=== PATIENT | male | born 1970 | race Caucasian/White ===

== ENCOUNTER 2019-05-30 10:43 | Observation (INO) ==
[2019-05-30] MEDS ORDERED: dilTIAZem HCl 5 MG/ML 5 ML VIAL IV ONE (10:57)
[2019-05-30] MEDS ORDERED: SODIUM CHLORIDE 0.9% 1000ML 1,000 ML IV ONE (10:58)
[2019-05-30] MEDS ORDERED: dilTIAZem HCl 5 MG/ML 5 ML VIAL IV STA ×2 (10:58→12:06)
[2019-05-30 11:10] LABS: Basophils # (auto) 0.05 K/uL (0-0.2); Basophils % (auto) 0.7 %; Eosinophils # (auto) 0.64 K/uL (0-0.5); Eosinophils % (auto) 8.5 %; Hematocrit (blood only) 47.5 % (42-52); Hemoglobin 16.2 g/dL (14.0-18.0); Immature Granulocytes # (auto) 0.02 K/uL (0.00-0.02); Immature Granulocytes % (auto) 0.3 %; Lymphocytes # (auto) 2.68 K/uL (1.2-3.4); Lymphocytes % (auto) 35.7 %; Mean Corpuscular Hemoglobin 30.6 pg (25-34); Mean Corpuscular Hgb Conc 34.1 g/dL (32-36); Mean Corpuscular Volume 89.6 fL (80-100); Mean Platelet Volume 10.4 fL (7.4-10.4); Monocytes # (auto) 0.84 K/uL (0.11-0.59); Monocytes % (auto) 11.2 %; Neutrophils # (auto) 3.28 K/uL (1.4-6.5); Neutrophils % (auto) 43.6 %; Platelet Count 261 K/uL (130-400); RDW Coefficient of Variation 12.7 % (11.5-14.5); White Blood Count 7.51 K/uL (4.8-10.8)
[2019-05-30 11:19] LABS: Partial Thromboplastin Time 27.3 Seconds (21.0-31.0); Prothrombin Time 10.3 Seconds (9.0-12.0)
[2019-05-30 11:27] LABS: Alanine Aminotransferase 34 U/L (12-78); Albumin Level 3.9 gm/dl (3.4-5.0); Aspartate Aminotransferase 19 U/L (15-37); BUN Creatinine Ratio 17.1 (10-20); Blood Urea Nitrogen 18 mg/dl (7-18); Calcium 8.8 mg/dl (8.5-10.1); Carbon Dioxide 29 mmol/L (21-32); Chloride 106 mmol/L (98-107); Est GFR (African American) 95.5; Est GFR (Non-African American) 82.4; Glucose 97 mg/dl (70-99); Lipase 136 U/L (73-393); Potassium 4.3 mmol/L (3.5-5.1); Sodium 141 mmol/L (136-145)
[2019-05-30 11:40] LABS: Alkaline Phosphatase 71 U/L (45-117); Bilirubin,Total 0.7 mg/dl (0.2-1); Globulin 3.9 gm/dl (2.5-4.0); Total Protein 7.8 gm/dl (6.4-8.2); Troponin I < 0.015 ng/ml (0-0.045)
--- NOTE | 2019-05-30 11:43 | XRay Report ---
XR chest 1V portable CLINICAL HISTORY: 49 years-old Male presenting with Chest Pain. TECHNIQUE: Portable upright AP view of the chest was obtained. COMPARISON: None. FINDINGS: Cardiac silhouette borderline enlarged. No focal opacity. No large effusion or pneumothorax. Osseous structures normal. Upper abdomen normal. IMPRESSION: 1. Borderline cardiomegaly. No other convincing evidence of acute cardiopulmonary disease. Electronically signed by: August Huitron M.D. 05/30/2019 11:42 AM
[2019-05-30 11:59] LABS: Lyme Ab IgG w/WB Rflx Negative (Negative); Lyme Ab IgM w/WB Rflx Negative (Negative)
[2019-05-30] MEDS ORDERED: APIXABAN 5 MG TABLET PO ONE ×2 (12:19→23:00)
--- NOTE | 2019-05-30 14:03 | History & Physical Report ---
Date of Service May 30, 2019 Assessment & Plan (1) Atrial fibrillation with RVR: New onset paroxysmal atrial fibrillation with rapid ventricular response. Electrolytes and TSH normal. Does not use excessive caffeine, decongestants, or other stimulants. Received intravenous diltiazem in ED with slowing of ventricular rate. HELEN(2)DS(2)-VASc score = 0. Check echo. Cardiology consulted for further evaluation and management. (2) DVT prophylaxis: Not indicated due to low risk for VTE. (3) Discharge planning issues: Anticipated discharge to home. Family Medicine follow-up with Dr. Conde. History of Present Illness Chief Complaint: palpitations Primary Care Provider: Zachariah Conde MD 49-year-old male followed by Dr. Conde for Family Medicine. He enjoys excellent health. This morning, upon awakening, he noted palpitations, mild dyspnea on exertion, mild weakness and lightheadedness. No chest pain. Symptoms persisted, so he came to the ED for evaluation. Found to be in atrial fibrillation with rapid ventricular response. Received intravenous diltiazem with slowing of ventricular rate. Does not use excessive caffeine, decongestants, nicotine, or other stimulants. 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) Basal cell carcinoma (Chronic) No known problems Family History Father Mycosis fungoides Grandfather (Maternal) Melanoma Other Cancer Social History Preferred Language: Pashto Communication Ability: Effective Veterinary Parasitologist Required: No Beliefs That Will Affect Care: None Current Living Situation: Spouse and Family Other Information That Helps Us Care for You: No Feels Safe at Home: Yes Safety Concerns: Feels Safe At This Time Smoking Status: Light tobacco smoker Tobacco Type: cigars ; Cigarettes Per Day: a year ago ; Do You Dip or Chew Tobacco: No ; Second Hand Exposure: No ; Tobacco Cessation Education Requested by Patient: No Hx Alcohol Use: Yes Hx Substance Use: No Review of Systems Constitutional: no fever and no weight loss Eyes: no diplopia and no worsening vision Ear, Nose, Mouth, Throat: no nasal congestion, no sinus pain/pressure and no sore throat Respiratory: no cough and no dyspnea Cardiovascular: no chest pain, no palpitations and no edema Gastrointestinal: no nausea, no vomiting, no constipation, no diarrhea/loose stools, no blood in stools and no melena Musculoskeletal: + joint pain (knee pain) Integumentary: no rash and no new lesions followed by Derm for BCC Neurologic: + headache(s) (mild headache) Endocrine: no polydipsia and no polyuria Hematologic / Lymphatic: no easy bleeding, no easy bruising and no lymphadenopathy Physical Exam Constitutional: WD/WN, vitals as above no acute distress Eyes: PERRL, conjunctivae normal, anicteric sclerae ENMT: external ear and nose normal, oropharynx normal Neck: trachea midline, no thyromegaly Respiratory: normal respiratory effort, lungs clear to auscultation Cardiovascular: Rate/Rhythm: + irregularly irregular Heart Sounds: no gallop, no murmur and no cardiac rub Vessels: no JVD Extremities: normal capillary refill; no calf tenderness and no edema Gastrointestinal (Abdomen): normal bowel sounds, soft, nontender, no hepatosplenomegaly Musculoskeletal: Head/Neck/Chest: neck supple Extremities: strength 5/5 throughout; no cyanosis and no clubbing Skin: no rashes, warm and dry Neurologic: PERRL, EOMI no facial palsy no dysarthria or aphasia Psychiatric: Orientation: alert and oriented x 3 Affect: euthymic affect Lymphatic: no cervical lymphadenopathy Results & Data Vital Signs (Past 12 Hours) Vital Signs Temp Pulse Resp BP Pulse Ox 05/30/19 13:31 101 H 22 143/95 H 05/30/19 13:30 107 H 20 05/30/19 13:29 113 H 24 05/30/19 13:00 100 H 17 05/30/19 12:30 100 H 20 126/87 05/30/19 12:10 108 H 25 H 116/89 05/30/19 12:00 107 H 18 05/30/19 11:30 106 H 20 123/90 05/30/19 11:29 98 H 24 05/30/19 10:53 37 C 125 H 22 158/116 H 98 Laboratory Results Laboratory Results - last 24 hr 05/30/19 05/30/19 05/30/19 11:00 11:00 11:00 WBC 7.51 RBC 5.30 Hgb 16.2 Hct 47.5 MCV 89.6 MCH 30.6 MCHC 34.1 RDW Std Deviation 41.0 RDW Coeff of Lucie 12.7 Plt Count 261 MPV 10.4 Immature Gran % (Auto) 0.3 Neut % (Auto) 43.6 Lymph % (Auto) 35.7 Stokes % (Auto) 11.2 Eos % (Auto) 8.5 Baso % (Auto) 0.7 Immature Gran # (Auto) 0.02 Neut # (Auto) 3.28 Lymph # (Auto) 2.68 Stokes # (Auto) 0.84 H Eos # (Auto) 0.64 H Baso # (Auto) 0.05 PT 10.3 INR 1.0 APTT 27.3 PTT Ratio 1.0 Sodium 141 Potassium 4.3 Chloride 106 Carbon Dioxide 29 Anion Gap 6.0 BUN 18 Creatinine 1.05 Est Cr Clr Drug Dosing Not Reportable Est GFR ( Amer) 95.5 Est GFR (Non-Af Amer) 82.4 BUN/Creatinine Ratio 17.1 Glucose 97 Calcium 8.8 Magnesium 2.0 Total Bilirubin 0.7 AST 19 ALT 34 Alkaline Phosphatase 71 Troponin I < 0.015 Total Protein 7.8 Albumin 3.9 Globulin 3.9 Albumin/Globulin Ratio 1.0 Lipase 136 TSH 2.150 Lyme Disease IgG Ab Lyme Disease IgM Ab 05/30/19 11:00 WBC RBC Hgb Hct MCV MCH MCHC RDW Std Deviation RDW Coeff of Lucie Plt Count MPV Immature Gran % (Auto) Neut % (Auto) Lymph % (Auto) Stokes % (Auto) Eos % (Auto) Baso % (Auto) Immature Gran # (Auto) Neut # (Auto) Lymph # (Auto) Stokes # (Auto) Eos # (Auto) Baso # (Auto) PT INR APTT PTT Ratio Sodium Potassium Chloride Carbon Dioxide Anion Gap BUN Creatinine Est Cr Clr Drug Dosing Est GFR ( Amer) Est GFR (Non-Af Amer) BUN/Creatinine Ratio Glucose Calcium Magnesium Total Bilirubin AST ALT Alkaline Phosphatase Troponin I Total Protein Albumin Globulin Albumin/Globulin Ratio Lipase TSH Lyme Disease IgG Ab Negative Lyme Disease IgM Ab Negative Diagnostic Findings PORTABLE CHEST X-RAY FINDINGS: Cardiac silhouette borderline enlarged. No focal opacity. No large effusion or pneumothorax. Osseous structures normal. Upper abdomen normal. IMPRESSION: 1. Borderline cardiomegaly. No other convincing evidence of acute cardiopulmonary disease. Electronically signed by: August Huitron M.D. 05/30/2019 11:42 AM ECG Additional Comments: EKG performed at 1053 reviewed and demonstrated atrial fibrillation with a ventricular rate of 130/minute, poor R wave progression. Code Status & VTE Plan VTE Prophylaxis Plan VTE Prophylaxis will be ordered: No
[2019-05-30] MEDS ORDERED: ACETAMINOPHEN 325 MG TAB PO PRN (14:15)
--- NOTE | 2019-05-30 14:35 | Emergency Department Note ---
Entered by Valeria Samuel acting as a scribe for Fran Cortes DO History of Present Illness General Chief complaint: Chest Pain Stated complaint: CHEST PRESSURE - SHORT OF BREATH Source: patient Limitations: no limitations History of Present Illness Provider complaint: Palpitations Onset (ago): hour(s) Location: chest Pain Consistency: + constant Quality: + constant Associated symptoms: + other (Positive: palpitations, "strange feeling" in chest. Negative: falls, leg swelling); no nausea/vomiting The patient is a 49 year old male with no known past medical history who presents to the ED with complaints of constant palpitations that started this morning. The patient reports he went downstairs and noticed fluttering in his chest. He notes he was doing things that made him tired which usually do not affect him. The patient reports he developed shortness of breath. He additionally notes he didnt feel right [facility] and decided to come to the ER. He reports he is not in pain but just a strange feeling in my chest. The patient denies recent falls or trauma, nausea, vomiting, or leg swelling. Home Medications Home Medications Medication Instructions Recorded Confirmed Type No Known Home Medications 05/30/19 05/30/19 History Allergies Allergy/AdvReac Type Severity Reaction Status Date / Time No Known Allergies Allergy Mild Unverified 05/30/19 11:29 Past Med/Surg History Medical History No known problems Family History Other Cancer Social History Preferred Language: Kazakh Communication Ability: Effective Director Diversity Required: No Beliefs That Will Affect Care: None Current Living Situation: Spouse and Family Other Information That Helps Us Care for You: No Feels Safe at Home: Yes Safety Concerns: Feels Safe At This Time Smoking Status: Light tobacco smoker Tobacco Type: cigars ; Cigarettes Per Day: a year ago ; Do You Dip or Chew Tobacco: No ; Second Hand Exposure: No ; Tobacco Cessation Education Requested by Patient: No Hx Alcohol Use: Yes Hx Substance Use: No Review of Systems See HPI for pertinent positives & negatives. and A total of 10 systems reviewed and were otherwise negative Physical Exam Vital Signs Vital Signs - 24 hr 05/30/19 10:53 05/30/19 11:29 05/30/19 11:30 Temperature 37 C Temperature Source Oral Sepsis Recent Fever Within 48 Hours No Sepsis Action Taken by Nursing No Action Required Pulse Rate 125 H 98 H 106 H Pulse Rhythm Regular Pulse Strength Normal Respiratory Rate 22 24 20 Respiratory Effort / Characteristics Non-Labored Spontaneous Respiratory Depth Normal Respiratory Pattern Regular Blood Pressure 158/116 H 123/90 Blood Pressure Mean 130 101 Pulse Oximetry 98 Oxygen Delivery Method Room Air 05/30/19 11:46 05/30/19 12:00 05/30/19 12:10 Temperature Temperature Source Sepsis Recent Fever Within 48 Hours Sepsis Action Taken by Nursing Pulse Rate 107 H 108 H Pulse Rhythm Pulse Strength Respiratory Rate 18 25 H Respiratory Effort / Characteristics Respiratory Depth Respiratory Pattern Blood Pressure 116/89 Blood Pressure Mean 98 Pulse Oximetry Oxygen Delivery Method Room Air 05/30/19 12:30 05/30/19 13:00 Temperature Temperature Source Sepsis Recent Fever Within 48 Hours Sepsis Action Taken by Nursing Pulse Rate 100 H 100 H Pulse Rhythm Pulse Strength Respiratory Rate 20 17 Respiratory Effort / Characteristics Respiratory Depth Respiratory Pattern Blood Pressure 126/87 Blood Pressure Mean 100 Pulse Oximetry Oxygen Delivery Method GENERAL: Patient is awake, alert, and in no acute distress.Patient is resting comfortably and showing no signs of anxiety EYES: The conjunctivae are clear. The pupils are round and reactive. EARS, NOSE, MOUTH AND THROAT: The nose is without any evidence of any deformity. Mucous membranes are moist.Tongue is midline NECK: The neck is nontender and supple. RESPIRATORY: Normal respiratory effort is noted. There is no evidence of wheezing rhonchi or rales to auscultation. CARDIOVASCULAR: Tachycardic rate and irregular rhythm noted. No definite murmur noted. GASTROINTESTINAL: The abdomen is soft. Bowel sounds are present in all quadrants. Abdomen is nontender. MUSCULOSKELETAL/EXTREMITIES: There is no evidence of gross deformity. Full range of motion is noted in the hips and shoulders. SKIN: There is no obvious evidence of any rash. There are no petechiae, pallor or cyanosis noted. NEUROLOGIC: Patient is awake alert and oriented x3. Course 1052: The patient was evaluated in room A10. A complete history and physical exam was performed. 1200:Upon reevaluation, the patient is resting comfortably. I discussed laboratory and radiographic results with him. The patient verbalized agreement of the treatment plan. The patient will be evaluated for further management and care. 1208: I discussed the patient's case with Dr. Lay, Internal Medicine. He recommends eliquis and admission. 1238: I discussed the patient's case with Ora Mendoza PA-C. The patient will be evaluated for further management by Ora Rizvi Hospitalist. Consultations Consultation #1: I discussed the patient's case with Dr. Lay, Internal Medicine. He recommends eliquis and admission. Time: 12:08 Consultation #2: I discussed the patient's case with Ora Mendoza PA-C. The patient will be evaluated for further management by Ora Rizvi Hospitalmay[facility]. Time: 12:38 Administered Medications Discontinued Medications Apixaban (Eliquis) 5 mg PO ONE ONE Stop: 05/30/19 12:20 Last Admin: 05/30/19 12:27 Dose: 5 mg Documented by: [id number] Diltiazem HCl (Cardizem) Confirm Administered Dose 25 mg IV .STK-MED ONE Stop: 05/30/19 10:58 Last Admin: 05/30/19 11:10 Dose: Not Given Documented by: [id number] Diltiazem HCl (Cardizem) 10 mg IV NOW STA Stop: 05/30/19 10:59 Last Admin: 05/30/19 11:01 Dose: 10 mg Documented by: [id number] Cosigned by: [id number] Diltiazem HCl (Cardizem) 10 mg IV NOW STA Stop: 05/30/19 12:07 Last Admin: 05/30/19 12:08 Dose: 10 mg Documented by: [id number] Cosigned by: [id number] Sodium Chloride (Nss 1000ml) 1,000 mls @ 999 mls/hr IV .Q1H1M ONE Stop: 05/30/19 11:58 Last Infusion: 05/30/19 12:09 Dose: 0 mls/hr Documented by: [id number] Admin: 05/30/19 11:01 Dose: 999 mls/hr Documented by: [id number] Medical Decision Making Differential Diagnosis Differential diagnosis: Etiologies such as cardiac ischemia, aortic dissection, pulmonary embolism, pneumonia, pneumothorax, musculoskeletal, infections, pericarditis, myocarditis, esophageal rupture, gastrointestinal, as well as others were entertained. Medical Records Attestation: I reviewed the patient's medical records. Home Medications Current Medication List: was personally reviewed by me (No known home medications ) Laboratory Data Attestation: I reviewed the patient's lab results. Result diagrams: 05/30/19 11:00 05/30/19 11:00 Lab Results 05/30/19 05/30/19 05/30/19 Range/Units 11:00 11:00 11:00 WBC 7.51 (4.8-10.8) K/uL RBC 5.30 (4.7-6.1) M/uL Hgb 16.2 (14.0-18.0) g/dL Hct 47.5 (42-52) % MCV 89.6 (80-100) fL MCH 30.6 (25-34) pg MCHC 34.1 (32-36) g/dL RDW Std Deviation 41.0 (36.4-46.3) fL RDW Coeff of Lucie 12.7 (11.5-14.5) % Plt Count 261 (130-400) K/uL MPV 10.4 (7.4-10.4) fL Immature Gran % (Auto) 0.3 % Neut % (Auto) 43.6 % Lymph % (Auto) 35.7 % Cobb % (Auto) 11.2 % Eos % (Auto) 8.5 % Baso % (Auto) 0.7 % Immature Gran # (Auto) 0.02 (0.00-0.02) K/uL Neut # (Auto) 3.28 (1.4-6.5) K/uL Lymph # (Auto) 2.68 (1.2-3.4) K/uL Cobb # (Auto) 0.84 H (0.11-0.59) K/uL Eos # (Auto) 0.64 H (0-0.5) K/uL Baso # (Auto) 0.05 (0-0.2) K/uL PT 10.3 (9.0-12.0) Seconds INR 1.0 (0.9-1.1) APTT 27.3 (21.0-31.0) Seconds PTT Ratio 1.0 Sodium 141 (136-145) mmol/L Potassium 4.3 (3.5-5.1) mmol/L Chloride 106 (98-107) mmol/L Carbon Dioxide 29 (21-32) mmol/L Anion Gap 6.0 (3-11) BUN 18 (7-18) mg/dl Creatinine 1.05 (0.6-1.4) mg/dl Est Cr Clr Drug Dosing Not Reportable Est GFR ( Amer) 95.5 Est GFR (Non-Af Amer) 82.4 BUN/Creatinine Ratio 17.1 (10-20) Glucose 97 (70-99) mg/dl Calcium 8.8 (8.5-10.1) mg/dl Magnesium 2.0 (1.8-2.4) mg/dl Total Bilirubin 0.7 (0.2-1) mg/dl AST 19 (15-37) U/L ALT 34 (12-78) U/L Alkaline Phosphatase 71 (45-117) U/L Troponin I < 0.015 (0-0.045) ng/ml Total Protein 7.8 (6.4-8.2) gm/dl Albumin 3.9 (3.4-5.0) gm/dl Globulin 3.9 (2.5-4.0) gm/dl Albumin/Globulin Ratio 1.0 (0.9-2) Lipase 136 (73-393) U/L TSH 2.150 (0.300-4.500) uIu/ml Lyme Disease IgG Ab (Negative) Lyme Disease IgM Ab (Negative) 05/30/19 Range/Units 11:00 WBC (4.8-10.8) K/uL RBC (4.7-6.1) M/uL Hgb (14.0-18.0) g/dL Hct (42-52) % MCV (80-100) fL MCH (25-34) pg MCHC (32-36) g/dL RDW Std Deviation (36.4-46.3) fL RDW Coeff of Lucie (11.5-14.5) % Plt Count (130-400) K/uL MPV (7.4-10.4) fL Immature Gran % (Auto) % Neut % (Auto) % Lymph % (Auto) % Cobb % (Auto) % Eos % (Auto) % Baso % (Auto) % Immature Gran # (Auto) (0.00-0.02) K/uL Neut # (Auto) (1.4-6.5) K/uL Lymph # (Auto) (1.2-3.4) K/uL Cobb # (Auto) (0.11-0.59) K/uL Eos # (Auto) (0-0.5) K/uL Baso # (Auto) (0-0.2) K/uL PT (9.0-12.0) Seconds INR (0.9-1.1) APTT (21.0-31.0) Seconds PTT Ratio Sodium (136-145) mmol/L Potassium (3.5-5.1) mmol/L Chloride (98-107) mmol/L Carbon Dioxide (21-32) mmol/L Anion Gap (3-11) BUN (7-18) mg/dl Creatinine (0.6-1.4) mg/dl Est Cr Clr Drug Dosing Est GFR ( Amer) Est GFR (Non-Af Amer) BUN/Creatinine Ratio (10-20) Glucose (70-99) mg/dl Calcium (8.5-10.1) mg/dl Magnesium (1.8-2.4) mg/dl Total Bilirubin (0.2-1) mg/dl AST (15-37) U/L ALT (12-78) U/L Alkaline Phosphatase (45-117) U/L Troponin I (0-0.045) ng/ml Total Protein (6.4-8.2) gm/dl Albumin (3.4-5.0) gm/dl Globulin (2.5-4.0) gm/dl Albumin/Globulin Ratio (0.9-2) Lipase (73-393) U/L TSH (0.300-4.500) uIu/ml Lyme Disease IgG Ab Negative (Negative) Lyme Disease IgM Ab Negative (Negative) Imaging Data Radiologist's Impression: Radiology results as stated below per my review and the radiologist's interpretation: XR chest 1V portable CLINICAL HISTORY: 49 years-old Male presenting with Chest Pain. TECHNIQUE: Portable upright AP view of the chest was obtained. COMPARISON: None. FINDINGS: Cardiac silhouette borderline enlarged. No focal opacity. No large effusion or pneumothorax. Osseous structures normal. Upper abdomen normal. IMPRESSION: 1. Borderline cardiomegaly. No other convincing evidence of acute cardiopulmonary disease. Electronically signed by: August Huitron M.D. 05/30/2019 11:42 AM ECG Data Attestation: I personally reviewed and interpreted this ECG as follows: Indication: chest pain Rate (beats per minute): 129 Rhythm: atrial fibrillation Findings: no PVC, no ST depression and no ST elevation Comparison ECG Date: no prior available Blood Pressure Blood Pressure Findings: Elevated blood pressure Blood Pressure Disposition: elevated BP felt to be situational MDM Narrative The patient is a 49-year-old male who presented to the emergency department for an evaluation of palpitations. The patient started noticing dyspnea on exertion this morning. When he took his pulse he noticed it was fast and irregular. The patient was found to be in rapid atrial fibrillation. He was treated with IV fluids as well as IV Cardizem. He was also started on Eliquis. Patient was reevaluated multiple times. His symptoms significantly improved when his rate improved. He continued to be in atrial fibrillation. I discussed his case with the on-call [facility] rn procedure. I also discussed his case with the on-call [facility] hospitalist group. They have agreed to evaluate the patient in the emergency department for further management disposition. I discussed the patient's laboratory and radiographic studies with him. I also discussed the significance of this irregular heart rate with him and the need for rate control as well as anticoagulation at this time. Impression & Plan Atrial fibrillation with RVR, Chest pain, DIMAS (dyspnea on exertion), Palpitations Critical Care Time Critical Care Time: Yes Total Critical Care Time: 40 I have personally spent 40 minutes of critical care time in the direct management of this patient. This includes bedside care, interpretation of diagnostic studies, and testing, discussion with consultants, patient, and family members, and other required patient management activities. This 40 minutes is in excess of all separately billable procedures. Discharge Plan Visit Data *Final* Discharge Date/Time: 05/30/19 13:46 Chief Complaint: Chest Pain Stated Complaint: CHEST PRESSURE - SHORT OF BREATH ED Provider: Fran Cortes Discharge Problem: Atrial fibrillation with RVR, Chest pain, DIMAS (dyspnea on exertion), Palpitations Patient Disposition: Admitted As Inpatient Discharge Instructions Interventions: ED Discharge Assessment Last Done: 05/30/19 13:46 Discharge Problem: Chest pain Qualifiers: Chest pain type: unspecified Qualified Code(s): R07.9 - Chest pain, unspecified The scribe's documentation has been prepared under my direction and personally reviewed by me in its entirety. I confirm that the note above accurately reflects all work, treatment, procedures, and medical decision making performed by me.
[2019-05-30] MEDS ORDERED: dilTIAZem HCl 125 MG in DEXTROSE 5% 100 ML IV SCH (15:00)
--- NOTE | 2019-05-30 15:10 | Cardiology Consultation ---
Date of Consultation May 30, 2019 Assessment & Plan (1) Atrial fibrillation with RVR: Echocardiogram is currently in process. Rate control-start metoprolol tartrate 25 mg 4 times daily, diltiazem infusion 5 mg/h Stroke risk: Felicia has been initiated, first dose administered today 1227, will administer dose #2 at 11 PM, and then get him onto a regular 9 AM 9 PM dose starting tomorrow morning. History of Present Illness Attending Physician: Reji Leonard MD History of Present Illness Santos Jay is a 49 year old male seen in cardiology consultation per the request of Dr. Reji Leonard of the [facility] hospitalist group for the evaluation of palpitations due to newly diagnosed atrial fibrillation with rapid ventricular response. The patient states that yesterday he was in his normal state of health. He had a campfire last night, and had one bottle of beer. He went to bed feeling well. When he woke up at 745 this morning he felt a fluttering sensation in his chest. He went about his morning and while doing some laundry he felt exertional shortness of breath and transient chest pressure. He went to faith with his family, but his symptoms persisted and therefore he sought treatment in the emergency room. EKG performed on arrival on 05/30/2019 at 10:53 AM revealed atrial fibrillation with rapid ventricular response of 129 bpm without significant repolarization changes. He received 2 doses of IV diltiazem with improvement in his heart rates and symptoms. I discussed the case by telephone with Dr. Cortes of the emergency room, and I recommended hospital observation for further work-up and treatment. The patient has since been transferred to room to await. He is feeling comfortable. Atrial fibrillation in the range of 100 to 120 bpm is present at baseline. Vital signs are stable and he is in no distress. He has no past cardiac history. He is not on any medications. Past medical history-no chronic illnesses Family history-notable for his father having a "bundle branch block "and pacemaker Social history-patient is , he has a father of 3 and he works as a fish assistant manager. He is a non-smoker, he drinks alcohol rarely. Allergies Allergy/AdvReac Type Severity Reaction Status Date / Time No Known Allergies Allergy Mild Unverified 05/30/19 11:29 Home Medications Home Medications Medication Instructions Recorded Confirmed Type No Known Home Medications 05/30/19 05/30/19 History Patient History Medical History No known problems Family History Other Cancer Social History Preferred Language: [place] Communication Ability: Effective County Attorney Required: No Beliefs That Will Affect Care: None Current Living Situation: Spouse and Family Other Information That Helps Us Care for You: No Feels Safe at Home: Yes Safety Concerns: Feels Safe At This Time Smoking Status: Light tobacco smoker Tobacco Type: cigars ; Cigarettes Per Day: a year ago ; Do You Dip or Chew Tobacco: No ; Second Hand Exposure: No ; Tobacco Cessation Education Requested by Patient: No Hx Alcohol Use: Yes Hx Substance Use: No Physical Exam Physical Exam: Temp Pulse Resp BP Pulse Ox 37 C 101 H 22 143/95 H 98 05/30/19 10:53 05/30/19 13:31 05/30/19 13:31 05/30/19 13:31 05/30/19 10:53 Constitutional: WD/WN, vitals as above Respiratory: normal respiratory effort, lungs clear to auscultation Cardiovascular: Rate/Rhythm: + tachycardic and + irregularly irregular Vessels: no JVD Extremities: no edema Gastrointestinal (Abdomen): normal bowel sounds, soft, nontender, no hepatosplenomegaly Skin: no rashes, warm and dry Neurologic: PERRL, EOMI, accommodation nl, no face palsy, no dysarthria Results & Data Vital Signs (Past 12 Hours) Vital Signs Temp Pulse Resp BP Pulse Ox 05/30/19 13:31 101 H 22 143/95 H 05/30/19 13:30 107 H 20 05/30/19 13:29 113 H 24 05/30/19 13:00 100 H 17 05/30/19 12:30 100 H 20 126/87 05/30/19 12:10 108 H 25 H 116/89 05/30/19 12:00 107 H 18 05/30/19 11:30 106 H 20 123/90 05/30/19 11:29 98 H 24 05/30/19 10:53 37 C 125 H 22 158/116 H 98 Laboratory Results Cardiac Enzymes 05/30/19 Range/Units 11:00 AST 19 (15-37) U/L Troponin I < 0.015 (0-0.045) ng/ml Coagulation 05/30/19 Range/Units 11:00 PT 10.3 (9.0-12.0) Seconds APTT 27.3 (21.0-31.0) Seconds CBC 05/30/19 Range/Units 11:00 WBC 7.51 (4.8-10.8) K/uL RBC 5.30 (4.7-6.1) M/uL Hgb 16.2 (14.0-18.0) g/dL Hct 47.5 (42-52) % Plt Count 261 (130-400) K/uL Neut # (Auto) 3.28 (1.4-6.5) K/uL Lymph # (Auto) 2.68 (1.2-3.4) K/uL Todd # (Auto) 0.84 H (0.11-0.59) K/uL Eos # (Auto) 0.64 H (0-0.5) K/uL Baso # (Auto) 0.05 (0-0.2) K/uL Comprehensive Metabolic Panel 05/30/19 Range/Units 11:00 Sodium 141 (136-145) mmol/L Potassium 4.3 (3.5-5.1) mmol/L Chloride 106 (98-107) mmol/L Carbon Dioxide 29 (21-32) mmol/L BUN 18 (7-18) mg/dl Creatinine 1.05 (0.6-1.4) mg/dl Glucose 97 (70-99) mg/dl Calcium 8.8 (8.5-10.1) mg/dl AST 19 (15-37) U/L ALT 34 (12-78) U/L Alkaline Phosphatase 71 (45-117) U/L Total Protein 7.8 (6.4-8.2) gm/dl Albumin 3.9 (3.4-5.0) gm/dl Intake and Output 05/30/19 05/30/19 05/30/19 06:59 14:59 22:59 Intake Total 1000 / 1000 Balance 1000 / 1000 Intake: IV 1000 / 1000 Nss 1000ML 1,000 ml @ 999 mls/ 1000 / 1000 hr IV .Q1H1M [facility] Rx#:[id number] Other: Weight 116 kg Patient Weight 05/31/19 06:59 Weight 116 kg
[2019-05-30] MEDS: METOPROLOL TARTRATE 25 MG TAB PO SCH ×2 (17:03→21:59)
--- NOTE | 2019-05-31 07:23 | Cardiology Progress Note ---
Date of Service May 31, 2019 Assessment & Plan (1) Atrial fibrillation with RVR: Pt converted to SR early this am. Review of telemetry reveals the patient had a 3-second conversion pause this morning at 4:07 AM while on a diltiazem infusion. This was followed by several sinus beats and then he reverted back to atrial fibrillation. At 4:53 AM the patient converted from atrial fibrillation to sinus rhythm without a pause and is remained in sinus rhythm in the interim. The patient's echocardiogram yesterday revealed no evidence of structural heart disease with the exception of very mild left ventricular hypertrophy, with inner ventricular septal thickness and posterior wall thickness in the range of 1.2 cm. At this time, recommend transitioning to metoprolol succinate 25 mg by mouth daily. Regarding stroke prophylaxis, the patient's [id number] score is 0 predicting a low risk of cardioembolic stroke. It is unknown however the patient will have her upcoming episodes, and I would recommend at least 1 month of anticoagulation with Eliquis until further assessment can be made. Regarding his chest tightness, recommend further assessment with a pharmacologic nuclear stress test as an outpatient for assessment of underlying CAD. Pharmacologic stress testing indicated in order to attempt avoiding recurrence of atrial fibrillation with high intensity exercise. Pt stable for discharge: I have called in prescriptions for both Eliquis 5 mg p.o. twice daily, #60, with 3 refills and metoprolol succinate 25 mg p.o. daily, #30, with 3 refills to [facility]. His [id number] cost for the Eliquis is predicted to be $40. Ask case management if he repeat card may be available for him. The patient states the $40 co-pay is acceptable. I will request a cardiology follow-up visit, at which time patient will be reassessed and consideration toward the stress testing will be made for test to be performed after the follow-up visit. Subjective CC: follow up palpitations, dyspnea Subjective: Pt feeling well. Converted to SR this am. Review of Systems Review of Systems: All systems reviewed & are unremarkable except as noted in HPI & below Physical Exam Physical Exam: Temp Pulse Resp BP Pulse Ox 37.0 C 71 17 117/68 97 05/31/19 07:13 05/31/19 07:13 05/31/19 07:13 05/31/19 07:13 05/31/19 07:13 Constitutional: WD/WN, vitals as above Respiratory: normal respiratory effort, lungs clear to auscultation Cardiovascular: RRR, no murmur, no edema Gastrointestinal (Abdomen): normal bowel sounds, soft, nontender, no hepatosplenomegaly Skin: no rashes, warm and dry Neurologic: PERRL, EOMI, accommodation nl, no face palsy, no dysarthria Results & Data Vital Signs (Past 12 Hours) Vital Signs Temp Pulse Resp BP Pulse Ox 05/31/19 07:13 37.0 C 71 17 117/68 97 05/31/19 03:45 36.9 C 63 18 95/58 L 92 05/30/19 23:39 36.8 C 63 19 114/55 L 98 05/30/19 20:23 36.8 C 62 20 113/58 L 95 Laboratory Results Cardiac Enzymes 05/30/19 Range/Units 11:00 AST 19 (15-37) U/L Troponin I < 0.015 (0-0.045) ng/ml Coagulation 05/30/19 Range/Units 11:00 PT 10.3 (9.0-12.0) Seconds APTT 27.3 (21.0-31.0) Seconds CBC 05/30/19 Range/Units 11:00 WBC 7.51 (4.8-10.8) K/uL RBC 5.30 (4.7-6.1) M/uL Hgb 16.2 (14.0-18.0) g/dL Hct 47.5 (42-52) % Plt Count 261 (130-400) K/uL Neut # (Auto) 3.28 (1.4-6.5) K/uL Lymph # (Auto) 2.68 (1.2-3.4) K/uL [place] # (Auto) 0.84 H (0.11-0.59) K/uL Eos # (Auto) 0.64 H (0-0.5) K/uL Baso # (Auto) 0.05 (0-0.2) K/uL Comprehensive Metabolic Panel 05/30/19 Range/Units 11:00 Sodium 141 (136-145) mmol/L Potassium 4.3 (3.5-5.1) mmol/L Chloride 106 (98-107) mmol/L Carbon Dioxide 29 (21-32) mmol/L BUN 18 (7-18) mg/dl Creatinine 1.05 (0.6-1.4) mg/dl Glucose 97 (70-99) mg/dl Calcium 8.8 (8.5-10.1) mg/dl AST 19 (15-37) U/L ALT 34 (12-78) U/L Alkaline Phosphatase 71 (45-117) U/L Total Protein 7.8 (6.4-8.2) gm/dl Albumin 3.9 (3.4-5.0) gm/dl Intake and Output 05/30/19 05/31/19 05/31/19 22:59 06:59 14:59 Intake Total 691.583 / 1691.583 62.583 / 62.583 Output Total 300 / 300 Balance 391.583 / 1391.583 62.583 / 62.583 Intake: IV 16.583 / 1016.583 62.583 / 62.583 Cardizem 125 mg In D5 100 ml @ 16.583 / 16.583 62.583 / 62.583 5 MG/HR 5 mls/hr IV .Q24H [facility] Rx#:[id number] Oral 675 / 675 Output: Urine 300 / 300 Other: Other Intake Source NPO # Unmeasured Voids 1 Weight 116 kg Diagnostic Findings EKG performed today 05/31/2019 at 8:30 AM: Normal sinus rhythm at 79 bpm, left anterior fascicular block pattern. The computer interpretation states that an age-indeterminate anterior infarction cannot be excluded, there is artifact noted in V3 making a somewhat of a suboptimal tracing, the patient's wall motion was normal yesterday, and I think this would be a false positive finding on the EKG. Compared to the prior tracing performed yesterday, atrial fibrillation has been replaced by sinus rhythm. Medications Administered Current Inpatient Medications Acetaminophen (Tylenol) 650 mg PO Q4H PRN PRN Reason: Pain or Fever Stop: 06/29/19 14:14 Apixaban (Eliquis) 5 mg PO BID [facility] Stop: 06/30/19 08:59 Last Admin: 05/31/19 07:52 Dose: 5 mg Documented by: Metoprolol Tartrate (Lopressor) 25 mg PO QID [facility] Stop: 06/29/19 16:59 Last Admin: 05/31/19 07:52 Dose: 25 mg Documented by:
[2019-05-31] MEDS: METOPROLOL TARTRATE 25 MG TAB PO SCH (07:52)
[2019-05-31] MEDS ORDERED: APIXABAN 5 MG TABLET PO SCH (09:00)
[2019-05-31] MEDS ORDERED: METOPROLOL SUCC 25MG EXT REL TAB PO SCH (11:00)
--- NOTE | 2019-05-31 12:05 | Discharge Summary ---
Date of Service May 31, 2019 Admission HPI Per Admitting Provider 49-year-old male followed by Dr. Conde for Family Medicine. He enjoys excellent health. This morning, upon awakening, he noted palpitations, mild dyspnea on exertion, mild weakness and lightheadedness. No chest pain. Symptoms persisted, so he came to the ED for evaluation. Found to be in atrial fibrillation with rapid ventricular response. Received intravenous diltiazem with slowing of ventricular rate. Does not use excessive caffeine, decongestants, nicotine, or other stimulants. Principal Diagnosis Paroxysmal atrial fibrillation, RVR Discharge Exam Constitutional WD/WN, vitals as above no acute distress Eyes PERRL, conjunctivae normal, anicteric sclerae ENMT external ear and nose normal, oropharynx normal Neck trachea midline, no thyromegaly Respiratory normal respiratory effort, lungs clear to auscultation Cardiovascular Rate/Rhythm: + irregularly irregular Heart Sounds: no gallop, no murmur and no cardiac rub Vessels: no JVD Extremities: normal capillary refill; no calf tenderness and no edema Gastrointestinal (Abdomen) normal bowel sounds, soft, nontender, no hepatosplenomegaly Musculoskeletal Head/Neck/Chest: neck supple Extremities: strength 5/5 throughout; no cyanosis and no clubbing Skin no rashes, warm and dry Psychiatric Orientation: alert and oriented x 3 Affect: euthymic affect Lymphatic no cervical lymphadenopathy Discharge Data Allergies Allergy/AdvReac Type Severity Reaction Status Date / Time No Known Allergies Allergy Mild Unverified 05/30/19 11:29 Consultations 05/30/19 12:44 ED Decision to Admit Stat 05/30/19 14:15 Consult Cardiology Stat Hospital Course (1) Atrial fibrillation with RVR: New onset paroxysmal atrial fibrillation with rapid ventricular response. Converted to sinus with rate controlled, Appreciate input from cardiology Patient insist started on Lopressor 25 mg twice daily Started on chronic anticoagulation with Eliquis Stable to be discharged home today, Outpatient follow-up with cardiology, and schedule cardiac stress test for ischemia work-up in later date (2) DVT prophylaxis: Not indicated due to low risk for VTE. (3) Discharge planning issues: Stable to be discharged home today Family Medicine follow-up with Dr. Conde. Total Time Total Time Spent Total Time Spent (In Minutes): Approximately 35 minutes Total Time Includes: Examination of the Patient, Discharge Planning, Medication Reconciliation and Communication With Other Providers Discharge Plan Discharge Items Patient Disposition: Home - Self-Care Reason For Visit: ATRIAL FIBRILLATION Discharge Diagnosis: ATRIAL FIBRILLATION, WITH RAPID VENTRICULAR RESPONSE(RAPID IRREGULAR HEART RATE) Activity: Resume your previous activity Non-emergency contact: Primary Care Provider Call non-emergency contact if: you have any medication questions Follow-up/Referrals: Lucian Lay DO [[employer]] - Zachariah Conde MD [Primary Care Provider] - 06/02/19 11:05 am Diet: Heart Healthy Addtl Attending Provider Instructions: New medications: 1. Eliquis 5 mg 1 tablet twice daily: Anticoagulation/blood thinner-to prevent risk of stroke because of irregular heart rate 2. Metoprolol succinate 25 mg take 1 tablet twice daily: Medication to control your heart rate and blood pressure Hospital follow-up with family physician Cardiology follow-up with Dr. Lay, office will call with appointment Pending Studies at Discharge: Yes Studies:: Cardiac stress test, will be scheduled by cardiology office Stand-Alone Forms: Call Back Authorization, [facility] Medications and DC Order Prescriptions: New metoprolol succinate 25 mg Tablet Extended Release 24 Hr 25 mg PO QAM 30 Days Qty: 0 RF: 0 Eliquis 5 mg Tablet 5 mg PO BID 30 Days Qty: 0 RF: 0 Discharge Orders: Discharge Order (Routine); Ordered 05/31/19 Ordered By: Jenn Obrien Admission Data Admit Date/Time: 05/30/19 13:04 Attending Provider: Jenn Obrien Admit Provider: Reji Leonard Primary Care Provider: Zachariah Conde Other Providers: Reji Leonard ; Lucian Lay Other Interventions: Discharge Summary Assessment (RN) Last Done: 05/31/19 12:26 DC Date/Time DO NOT enter until pt leaves facility: 05/31/19 13:03
== END 2019-05-31 13:03 | disposition home or self-care (01) ==
LOC: 2E 10:43 → ED 10:43 → SUATTDRO 13:04 → 2E 13:46